=== PATIENT | female | born 1930 | race Caucasian/White ===

== ENCOUNTER → 2016-07-10 | Outpatient (CLI) | payer MEDICARE, BC ==
[~2016-07-10] MED LIST: ASPI-664 PO; ATEN50TA PO; ATOR40TA68 PO; BUDE6HFA IH; EZET10TA3 PO; HYDR-3011 PO; LEVO75TA5 PO
--- NOTE | 2016-07-10 16:29 | RADRPT ---
PROCEDURE: Left knee radiographs. CLINICAL INDICATION: Left knee pain. TECHNIQUE: Three views. Weight bearing. Frontal, lateral, and patellar view. COMPARISON: No prior studies are available for comparison. FINDINGS: There is no fracture or dislocation. The soft tissues are normal. There is medial joint compartment narrowing. There is no lytic or blastic lesion. There is no radiopaque foreign body. IMPRESSION: 1. Moderate degenerative change with medial joint compartment narrowing. 2. Otherwise normal images of the left knee. RPTAT: QQ .Denton Osborne MD, MD Date Time Electronically viewed and signed by .Denton Osborne MD, on 07/10/2016 16:29 .R/
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
== END | disposition home or self-care (01) ==
LOC: HKI 15:55
DX: M25.562 Pain in left knee (principal); M17.12 Unilateral primary osteoarthritis, left knee
CPT/HCPCS: 20610; 73562; G0463

== ENCOUNTER → 2016-07-23 | Outpatient (CLI) | payer MEDICARE, BC ==
--- NOTE | 2016-07-24 03:46 | HKNOTE ---
DATE OF SERVICE: 07/23/2016 The patient comes in with an MRI of her left knee for review. The MRI is reported by Dr. Judd wilson as showing MRI dated 07/16/[address] Judd Bradford as showing "subchondral fracture," likely an insufficiency fracture affects the weightbearing surface of the lateral femora l condyle without collapse. 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 Mild diffuse chondromalacia of the patella. The patient and her were shown the actual MRI pictures. The possible causes of stress fract ures were discussed with them, although on a theoretical basis. The patient was advised to stay wit h her walker for another month. She is also advised that she most certainly will need to have knee replacements operation at sometime in the future if her life expectancy is within 2 years. The silverio ent will return to see me again in a month's time for reevaluation. At that time, we will spend mor e time discussing knee replacement surgery. Dictated By: SUKUMAR GRANGER/PATRICK Conf#: [id number] DID#: [id number]
== END | disposition home or self-care (01) ==
LOC: HKI 14:34
DX: M84.352A Stress fracture, left femur, initial encounter for fracture (principal); X58.XXXA Exposure to other specified factors, initial encounter; M87.852 Other osteonecrosis, left femur; M22.42 Chondromalacia patellae, left knee
CPT/HCPCS: G0463

== ENCOUNTER → 2016-08-20 | Outpatient (CLI) | payer MEDICARE, BC ==
--- NOTE | 2016-08-20 18:20 | RADRPT ---
PROCEDURE: Right knee radiographs. CLINICAL INDICATION: Right knee pain. TECHNIQUE: Three views. Weight bearing. Frontal, lateral, and patellar view. COMPARISON: No prior studies are available for comparison. FINDINGS: There is no fracture or dislocation. The soft tissues are normal. There are degenerative changes with osteophytes arising from all 3 joint compartment margins. There is no joint space narrowing. There is no lytic or blastic lesion. There is no radiopaque foreign body. IMPRESSION: 1. Mild degenerative change. 2. Otherwise unremarkable images of the right knee. RPTAT: QQ .Denton Osborne MD, MD Date Time Electronically viewed and signed by .Denton Osborne MD, on 08/20/2016 18:19 .R/
--- NOTE | 2016-08-20 22:20 | HKNOTE ---
DATE OF SERVICE: 08/20/2016 MAIN COMPLAINT: Pain in the right knee. NEW CONDITION. SUBJECTIVE: The patient was last seen by me on 07/23/2016. She has a stress fracture of the weight bearing surface of the lateral femoral condyle without collapse. She was treated with a walker and knee immobilizer, which she no longer uses. Her pain in the left knee has now subsided. She now co mplains of fairly sudden onset of pain in the right knee. Dr. Ram sent her for an MRI scan of the right knee and the right knee shows subchondral insufficiency fracture along the weightbeari ng surface of the posterior lateral femoral condyle. There is reactive bone marrow edema throughout condyle. Menisci are intact. PHYSICAL EXAMINATION: The patient comes in with her . She walks with a walker. She has no support for the left knee. The walker seems to be sufficient for that. However, she is not able to bear her full weight on the right knee. The right knee lacks about 10 degrees of extension and fle xion to 100 degrees. Ligaments are intact and stable. Small effusion present. IMAGING: MRI scan of the right knee obtained on 08/09/[address] Eunice Rollins as showing menisci are normal in their morphology. Subchondral insufficiency fracture along the posterior key ghtbearing surface of the lateral femoral condyle. Thinning of the articular cartilage of the contreras lofemoral compartment. There is some arthritis present as well. Plain x-rays of the right knee obtained today do not show the insufficiency fracture. Minimal arthr itic changes are noted. MANAGEMENT: The patient is being provided with a long leg knee immobilizer for the right leg. She will wear this for at least a month. She can take it off at night. The patient will be seen again in a month's time for re-x-ray and reevaluation. Dictated By: SUKUMAR GRANGER/PATRICK Conf#: [id number] DID#: [id number]
== END | disposition home or self-care (01) ==
LOC: HKI 16:02
DX: M25.561 Pain in right knee (principal)
CPT/HCPCS: 73562; G0463

== ENCOUNTER → 2016-09-17 | Outpatient (CLI) | payer MEDICARE, BC ==
--- NOTE | 2016-10-02 08:37 | HKNOTE ---
DATE OF SERVICE: 09/17/2016 HISTORY OF PRESENT ILLNESS: The patient had an insufficient [____] fracture of her right tibia. Her pain is now all completely resolved. She has no pain whatsoever. An x-ray of the right tibia shows that the fracture is now completely healed. MANAGEMENT: The patient advised that she can resume all her normal activities, her fracture is healed. She does not need to see me again unless her pain returns. Dictated By: Shree Tariq MD /serena/kassi /Document#: [id number]
== END | disposition home or self-care (01) ==
LOC: HKI 15:50
DX: S82.201A Unspecified fracture of shaft of right tibia, initial encounter for closed fracture (principal); X58.XXXA Exposure to other specified factors, initial encounter
CPT/HCPCS: G0463